=== PATIENT | male | born 1985 | race Hispanic/Latino ===

== ENCOUNTER 2019-05-07 05:44 | Emergency (ER) | payer OTHER ==
[2019-05-07] MEDS ORDERED: ACETAMINOPHEN EXTRA STRENGTH 500 MG TABLET ONE (06:18)
[2019-05-07] MEDS ORDERED: IBUPROFEN 600 MG TABLET ONE (06:18)
== END 2019-05-07 07:11 | disposition home or self-care (01) ==
LOC: EDH 05:44
DX: J10.1 Influenza due to other identified influenza virus with other respiratory manifestations (principal)
CPT/HCPCS: 87804